=== PATIENT | female | born 1975 | race Caucasian/White ===

== ENCOUNTER → 2024-01-14 15:50 | Outpatient (REF) | payer BC, SELFPAY | LOC: WDC 15:50 | PROVIDERS: ATTENDING PHYSICIAN Obstetrics & Gynecology; FAMILY PHYSICIAN Family Medicine | DX: Z12.31 Encounter for screening mammogram for malignant neoplasm of breast (principal) | CPT/HCPCS: 77063; 77067 ==

== ENCOUNTER → 2025-01-16 16:00 | Outpatient (REF) | payer BC, SELFPAY | LOC: WDC 16:00 | PROVIDERS: ATTENDING PHYSICIAN Nurse Practitioner Family | DX: Z12.31 Encounter for screening mammogram for malignant neoplasm of breast (principal) | CPT/HCPCS: 77063; 77067 ==